=== PATIENT | male | born 1990 | race Caucasian/White ===

== ENCOUNTER 2017-04-19 11:46 | Emergency (ER) | payer BC, OTHER ==
[~2017-04-19] VITALS: Ht 188 cm; Wt 105.4 kg
[2017-04-19 11:57] VITALS: TEMP 36.9; Ht 188 cm; Wt 105.4 kg
[2017-04-19] MEDS ORDERED: XYLOCAINE 1%/SOD BICARB 20 ML VIAL INFIL ONE (12:15)
--- NOTE | 2017-04-19 12:26 | EMERGENCY ROOM VISIT NOTE ---
ED Visit Note First contact with patient: 11:59 CHIEF COMPLAINT: Upper Lip laceration HISTORY OF PRESENT ILLNESS: This 26-year-old male presents the ER with chief complaint of a laceration to his upper lip. The patient was at work and was shooting a gun when it kicked back and hit him in the mouth. The patient denies any loose teeth. The patient's tetanus is up-to-date. He was able to get the bleeding to stop. REVIEW OF SYSTEMS: 6 system review was performed and was negative unless stated otherwise in history of present illness. PMH: The patient is healthy; there is no significant medical or surgical history. SOCIAL HISTORY: Patient lives with his . The patient admits to tobacco use and occasional alcohol use. PHYSICAL EXAM: Vital Signs: Were reviewed Reviewed Nurse's notes. GEN.: 26-year -old white male appears in no acute distress. MENTAL Status: The patient is alert, oriented, and coherent. EYES: Pupils are round, equal, and react briskly to light. FACE: There is a laceration on the upper lip on the right side which extends over the vermilion border. The edges are gaping apart. It measures 1.5 cm in length. There is no active bleeding and no foreign material in the wound. MOUTH: Teeth are firm and nonmobile EMERGENCY DEPARTMENT COURSE: The patient was evaluated. Wound Repair: Complexity: Basic. Verbal consent was obtained after the risks and benefits were explained, including but not limited to bleeding, scarring, infection, pain, and bone/joint /nerve damage. The skin was prepped with betadine and a sterile field set. The wound was anesthetized with 1.0 ml of 1% buffered lidocaine. With direct pressure the bleeding subsided. Copious irrigation was performed using sterile saline. The wound was explored for foreign bodies and none found. Debridement was not performed. The wound edges were approximated using 6-0 Ethilon with 4 simple interrupted sutures. Hemostasis and excellent approximation was achieved. Antibacterial ointment and a sterile dressing applied. Detailed wound care instructions and signs and symptoms of infection reviewed with the patient. No complications and the patient tolerated the procedure well. DIAGNOSIS: 1.5 cm upper Lip laceration DISCHARGE INSTRUCTIONS: Read the wound care instructions. Stitches out in 6 days. Bacitracin ointment over the wound for 3 days. Problem List Medical Problems: (1) No known health problems Status: Chronic Current/Historical Medications No Active Prescriptions or Reported Meds Allergies Coded Allergies: No Known Allergies (Unverified , 04/19/17) Vital Signs Date Time Temp Pulse Resp B/P (MAP) Pulse Ox O2 Delivery O2 Flow Rate FiO2 04/19/17 11:57 36.9 67 20 124/72 96 Room Air Departure Information Prescriptions No Active Prescriptions or Reported Meds Referrals No Doctor, Assigned (PCP) [facility] Instructions [facility]
[2017-04-19 12:33] VITALS: BP 121/63; PULSE 60; O2SAT 97
== END 2017-04-19 12:34 | disposition home or self-care (01) ==
LOC: C.EDB 11:48 → C.EDD 12:34
DX: S01.511A Laceration without foreign body of lip, initial encounter (principal); W20.8XXA Other cause of strike by thrown, projected or falling object, initial encounter; Y93.89 Activity, other specified; Y92.89 Other specified places as the place of occurrence of the external cause; Y99.0 Civilian activity done for income or pay; F17.200 Nicotine dependence, unspecified, uncomplicated